=== PATIENT | male | born 1990 | race Caucasian/White ===

== ENCOUNTER 2017-02-15 21:16 | Emergency (ER) | payer OTHER ==
[2017-02-15 21:45] VITALS: BP 126/76; PULSE 97; TEMP 97.7; BMI 25.7
--- NOTE | 2017-02-15 21:46 | PDOC ---
History of Present Illness - General Stated Complaint: OVERDOSE Time Seen by Provider: 02/15/17 21:28 History Source: Patient, EMS Exam Limitations: No Limitations - History of Present Illness Initial Comments: This is a 26 yo male with h/o heroin use (snorts) who presents BIBA after being found unconscious at home. EMS notes that he was found unconscious, supine, with pinpoint pupils, and very bradypneic, but always with pulses. EMS administered 2 mg intranasal Narcan with some relief, used the BVM on him, and soon after gave him a second 2 mg intranasal Narcan. He did vomit many times en route to the ED in the ambulance. EMS notes he also became increasingly agitated and combative but had mostly calmed down by arrival to the ED. He has been protecting his airway en route per EMS report. The patient himself currently reports intermittent nausea but not other symptoms, no shortness of breath, chest pain, fever, abdominal pain, or other symptoms of illness. Past History - Past Medical History Allergies/Adverse Reactions: Allergies Allergy/AdvReac Type Severity Reaction Status Date / Time No Known Allergies Allergy Verified 02/15/17 21:42 Review of Systems - Review of Systems Constitutional: No: Chills, Fever, Unexplained wgt Loss HEENTM: No: Nose Congestion, Throat Pain Respiratory: No: Cough, Shortness of Breath Cardiac (ROS): No: Chest Pain, Palpitations ABD/GI: Yes: Nausea, Vomiting. No: Constipated, Diarrhea : No: Burning, Dysuria Musculoskeletal: No: Back Pain, Neck Pain Integumentary: No: Bruising, Rash Neurological: No: Headache, Numbness, Tingling, Weakness, Dizziness Endocrine: No: Unexplained Weight Gain, Unexplained Weight Loss *Physical Exam - Physical Exam General Appearance: Yes: Nourished, Disheveled, Mild Distress, Other (unkempt, vomitus on shirt, shivering all over, requests blanket, fully oriented and answering questions appropriately) HEENT: positive: EOMI, SLAVA, Normal Voice, Hearing Grossly Normal. negative: Scleral Icterus (R), Scleral Icterus (L), Nasal Congestion Neck: positive: Trachea midline, Supple. negative: Tender, Rigid Respiratory/Chest: positive: Lungs Clear, Normal Breath Sounds. negative: Respiratory Distress, Crackles, Rhonchi, Stridor, Wheezing Cardiovascular: positive: Regular Rhythm, Regular Rate. negative: Murmur Gastrointestinal/Abdominal: positive: Normal Bowel Sounds, Soft. negative: Tender, Organomegaly, Pulsatile Mass, Guarding Musculoskeletal: positive: Normal Inspection. negative: Decreased Range of Motion, Vertebral Tenderness Extremity: positive: Normal Capillary Refill, Normal Inspection, Normal Range of Motion. negative: Tender, Cyanosis Integumentary: positive: Normal Color, Dry, Warm. negative: Erythema, Rash, Bruising Neurologic: positive: film and video editor II-XII NML intact, Fully Oriented, Alert, Normal Mood/ Affect, Normal Response, Motor Strength 5/5. negative: EOM Palsy, Facial Droop , Numbness, Confused, Disoriented Medical Decision Making - Medical Decision Making 26 yom with h/o marijuana, tobacco, and heroin use (snorts x3 times ever) BIBA for heroin OD. Found down at home, BVM, Narcan 2mg x2 doses, regained consciousness. Pt has not been seen here at [facility] before. He denies any other substance use or suicidality. Will order urine tox screen, CBCD, CMP, observe. 02/15/17 22:20 Pt vomiting, Zofran ordered IV. 02/15/17 23:58 Pt's case is signed out to excellent Dr. Brandyn Preciado. *DC/Admit/Observation/Transfer Diagnosis at time of Disposition: Diacetylmorphine overdose Qualifiers: Encounter type: initial encounter Injury intent: accidental or unintentional Qualified Code(s): T40.1X1A - Poisoning by heroin, accidental (unintentional), initial encounter
[2017-02-15] MEDS ORDERED: ONDANSETRON 4 MG/2 ML VIAL IVPUSH ONE (22:18)
[2017-02-16 00:18] LABS: BASOPHIL 0.2 % (0-2.0); EOSINOPHIL 0.1 % (0-4.5); MCH 28.2 pg (25.7-33.7); MCHC 33.7 g/dl (32.0-35.9); MEAN CELL VOLUME 83.7 fl (80-96); PLATELET COUNT 242 K/MM3 (134-434); RDW 14.1 % (11.9-15.9); WHITE BLOOD COUNT 21.1 K/mm3 (4.0-10.0)
[2017-02-16 00:42] LABS: URINE MARIJUANA THC POSITIVE ng/ml (CUTOFF=50)
[2017-02-16 00:46] LABS: ALBUMIN 4.4 g/dl (3.4-5.0); ANION GAP 7 (8-16); CALCIUM 9.2 mg/dL (8.5-10.1); CO2 31 mmol/L (21-32); CREATININE 0.9 mg/dL (0.7-1.3); GLUCOSE,RANDOM 88 mg/dL (74-106); SGOT/AST 20 U/L (15-37); SGPT/ALT 26 U/L (12-78)
[2017-02-16 00:48] LABS: ALK PHOS 58 U/L (45-117); BILIRUBIN,TOTAL 0.8 mg/dL (0.2-1.0); TOT PROT 7.3 g/dl (6.4-8.2)
--- NOTE | 2017-02-16 02:38 | PDOC ---
Attending Attestation - Resident Resident Name: Kenzie Rodriguez - ED Attending Attestation I have performed the following: I have examined & evaluated the patient, The case was reviewed & discussed with the resident, I agree w/resident's findings & plan, Exceptions are as noted - HPI HPI: 02/16/17 02:35 26 yo male found unresponsive by mom, given narcan and arrived sl agitated, vomiting HEENT no head trauma lungs cta b/l cvr [id number] abd soft,nondistended neuro moving all extremities - Physicial Exam PE: 02/16/17 02:38 please read above - Medical Decision Making 02/16/17 02:38 pt admitted to using heroin tonight -he has been alert and conversant for past several hours -family is here and his mother will take him home IMP heroin abuse
--- NOTE | 2017-02-16 02:43 | PDOC ---
*Physical Exam - Vital Signs Last Vital Signs Temp Pulse Resp BP Pulse Ox 97.7 F 97 H 20 126/76 97 02/15/17 21:42 02/15/17 21:42 02/15/17 21:42 02/15/17 21:42 02/15/17 21:42 ED Treatment Course - LABORATORY CBC & Chemistry Diagram: 02/15/17 21:45 02/15/17 21:45 - ADDITIONAL ORDERS Additional order review: Laboratory Results 02/15/17 02/15/17 21:45 21:45 Sodium 138 Potassium 4.6 Chloride 100 Carbon Dioxide 31 Anion Gap 7 L BUN 14 Creatinine 0.9 Creat Clearance w eGFR > 60 Random Glucose 88 Calcium 9.2 Total Bilirubin 0.8 AST 20 ALT 26 Alkaline Phosphatase 58 Total Protein 7.3 Albumin 4.4 Opiates Screen Positive Methadone Screen Negative Barbiturate Screen Negative Phencyclidine Screen Negative Ur Amphetamines Screen Negative MDMA (Ecstasy) Screen Negative Benzodiazepines Screen Negative Cocaine Screen Negative U Marijuana (THC) Screen Positive 02/15/17 21:45 RBC 5.44 MCV 83.7 MCHC 33.7 RDW 14.1 MPV 8.0 Neutrophils % 81.0 Lymphocytes % 12.3 Monocytes % 6.4 Eosinophils % 0.1 Basophils % 0.2 - Medications Given in the ED: ED Medications Discontinued Medications Generic Name Dose Route Start Last Admin Trade Name Wandy PRN Reason Stop Dose Admin Ondansetron HCl 4 mg 02/15/17 22:18 02/15/17 23:20 Zofran Injection IVPUSH 02/15/17 22:19 4 mg ONCE ONE Administration *DC/Admit/Observation/Transfer Diagnosis at time of Disposition: Overdose of heroin Qualifiers: Encounter type: initial encounter Injury intent: accidental or unintentional Qualified Code(s): T40.1X1A - Poisoning by heroin, accidental (unintentional), initial encounter - Discharge Dispostion Disposition: HOME Condition at time of disposition: Stable - Patient Instructions Printed Discharge Instructions: DI for Drug Overdose in Adults Additional Instructions: Stop using heroin.
== END 2017-02-16 02:54 | disposition home or self-care (01) ==
LOC: JER 21:16
PROC: 3E033GC Introduction of Other Therapeutic Substance into Peripheral Vein, Percutaneous Approach (ICD-10-PCS; principal; 2017-02-15)
DX: T40.1X4A Poisoning by heroin, undetermined, initial encounter (principal); R11.2 Nausea with vomiting, unspecified; R00.1 Bradycardia, unspecified; Y92.018 Other place in single-family (private) house as the place of occurrence of the external cause
CPT/HCPCS: 36415; 80053; 80307; 85025; 96374; 99283-25

== ENCOUNTER 2018-11-02 20:15 | Emergency (ER) | payer OTHER | END 2018-11-03 00:01 | disposition home or self-care (01) | LOC: JER 11-03 00:01 ==

== ENCOUNTER 2021-07-08 21:53 | Emergency (ER) | payer OTHER ==
[2021-07-08 22:09] VITALS: BP 130/91; TEMP 96.1; BMI 26.4
[2021-07-09] MEDS ORDERED: NALOXONE HCL 0.4 MG/ML VIAL IVPUSH STA (00:30)
[2021-07-09] MEDS ORDERED: LACTATED RINGERS SOLUTION 1,000 ML/1,000 ML INFUS.BAG IV SCH (00:45)
[2021-07-09] MEDS ORDERED: NALOXONE HCL 0.4 MG/ML VIAL ONE (00:50)
[2021-07-09 00:54] LABS: HEMATOCRIT 46.2 % (35.4-49); HEMOGLOBIN 15.3 GM/dL (11.7-16.9); MCH 26.9 pg (25.7-33.7); MEAN CELL VOLUME 81.5 fl (80-96); MEAN PLT VOLUME 7.7 fl (7.5-11.1); PLATELET COUNT 324 10^3/uL (134-434); RBC 5.67 M/mm3 (4.00-5.60); RDW 14.1 % (11.9-15.9); WHITE BLOOD COUNT 25.5 K/mm3 (4.0-10.0)
[2021-07-09 01:19] LABS: BLOOD UREA NITROGEN 15.2 mg/dL (7-18); CALCIUM 9.1 mg/dL (8.5-10.1)
[2021-07-09 01:20] LABS: ALBUMIN 4.8 g/dl (3.4-5.0)
[2021-07-09 01:23] LABS: CREATININE 1.1 mg/dL (0.55-1.3)
[2021-07-09 01:24] LABS: BILIRUBIN,TOTAL 0.8 mg/dL (0.2-1); TOT PROT 7.9 g/dl (6.4-8.2)
[2021-07-09 01:45] VITALS: PULSE 67
[2021-07-09 03:55] LABS: ANISOCYTOSIS 1+; MACROCYTOSIS 1+; PLATELET ESTIMATE NORMAL
== END 2021-07-09 03:37 | disposition home or self-care (01) ==
LOC: JER 21:53
PROC: 3E033NZ Introduction of Analgesics, Hypnotics, Sedatives into Peripheral Vein, Percutaneous Approach (ICD-10-PCS; principal; 2021-07-08)
DX: T40.2X1A Poisoning by other opioids, accidental (unintentional), initial encounter (principal)
CPT/HCPCS: 36415; 80053; 85025; 96374; 99284-25